=== PATIENT | male | born 1945 | race Caucasian/White ===

== ENCOUNTER 2017-09-11 08:38 | Day surgery (SDC) | payer MEDICARE, BC ==
[~2017-09-11 08:38] MED LIST: Metoclopramide 10 MG/2 ML SDV IV PRN; Sodium Chloride 0.9% 1,000 ML IV SCH; Sodium Chloride 0.9% 10 ML Syringe FLUSH PRN
--- NOTE | 2017-09-11 17:59 | OR ---
DATE OF OPERATION: 09/11/2017 PREOPERATIVE DIAGNOSIS: Surveillance colonoscopy. POSTOPERATIVE DIAGNOSIS: Normal colonoscopy. OPERATION: Surveillance colonoscopy. COMPLICATIONS: None. DRAINS: None. SPECIMENS: None. ESTIMATED BLOOD LOSS: Zero. ANESTHESIA: General propofol anesthesia. INDICATION: Mr. Hdz is a 71-year-old gentleman here for a surveillance colonoscopy. He does have a history of polypectomy in the past and is considered high risk for colonic polyps. He is otherwise asymptomatic. The above-mentioned procedure was explained. The risks, benefits, and complications were explained. The patient understood and agreed and was brought to the operating room. DESCRIPTION OF PROCEDURE: The patient was brought to the operating room, placed in the left lateral decubitus position on the operating room table. Satisfactory general propofol anesthesia was administered. We began by performing a rectal examination which was within normal limits. I then placed the endoscope by finger introduction into the rectum and subsequently advanced this to the level of the cecum. This was easily accomplished. The cecum was identified with the appendiceal orifice and the cecal strap and the ileocecal valve. Careful evaluation of the abdomen was then carried out. Careful evaluation of the colon was then carried out on withdrawal. There were no telangiectasias, polyps, neoplastic growths, or diverticula. Next, I performed a retroflexion maneuver in the rectum and this was within normal limits as well. The colon was decompressed and the endoscope was withdrawn. The patient tolerated the procedure well. There were no complications. Instrument count was correct. The patient was awoken in the OR and taken to PACU for recovery. Recommend followup colonoscopy in 5 years. MEHDI /[id number]
== END 2017-09-11 11:50 | disposition home or self-care (01) ==
LOC: LB.SDS 08:38
PROVIDERS: ATTEND Surgery
DX: Z12.11 Encounter for screening for malignant neoplasm of colon (principal); K21.9 Gastro-esophageal reflux disease without esophagitis; Z98.890 Other specified postprocedural states; Z87.19 Personal history of other diseases of the digestive system
CPT/HCPCS: G0121; J7040; J7030

== ENCOUNTER 2023-05-28 05:30 | Inpatient (IN) | payer OTHER, MEDICARE ==
[2023-05-28] MEDS ORDERED: Sodium Chloride 0.9% 10 ML Syringe FLUSH PRN (05:51)
[2023-05-28] MEDS ORDERED: Albuterol/Ipratropium 3.0-0.5 MG/3 ML Neb Soln NEB ONE (06:02)
[2023-05-28] MEDS: Albuterol/Ipratropium 3.0-0.5 MG/3 ML Neb Soln NEB SCH ×6 (06:02→23:30)
[2023-05-28 06:03] LABS: HEMATOCRIT 46.8 % (40.0-54.0); HEMOGLOBIN 15.8 g/dL (13.0-18.0); MEAN CORPUSCULAR HGB CONC 33.8 g/dL (31.0-35.0); MEAN PLATELET VOLUME 10.2 fL (6.0-10.0); RED BLOOD CELL COUNT 5.26 M/uL (4.50-6.50); RED CELL DISTRIBUTION WIDTH 14.9 % (11.0-16.0); WHITE BLOOD CELL COUNT,WBC 7.6 K/uL (4.0-11.0)
[2023-05-28 06:17] LABS: MAGNESIUM 1.9 mg/dL (1.8-2.4); PHOSPHORUS 4.7 mg/dL (2.5-4.9); TROPONIN I HIGH SENSITIVITY 10.4 pg/ml (<=60.4)
[2023-05-28 06:19] LABS: A/G RATIO 0.8 (0.8-2.0); ALBUMIN 3.4 g/dL (3.4-5.0); ANION GAP 16.4 mmol/L (5.0-15.0); BILIRUBIN TOTAL 0.5 mg/dL (0.0-1.0); BUN/CREATININE RATIO 18.6 (6-25); CALCIUM 10.1 mg/dL (8.5-10.1); CARBON DIOXIDE,CO2 25.7 mmol/L (21.0-32.0); CREATININE 1.13 mg/dL (0.70-1.30); EST CRCL DRUG DOSING (CG) 59.23 mL/min; POTASSIUM,K 4.1 mmol/L (3.5-5.1); PROTEIN TOTAL,TP 7.6 g/dL (6.4-8.2)
[2023-05-28] MEDS ORDERED: methylPREDNISolone Sodium Succinate 40 MG/1 ML SDV IVPUSH ONE (06:25)
[2023-05-28] MEDS ORDERED: Albuterol 0.083% 2.5 MG/3 ML Neb Soln NEB ONE (06:26)
[2023-05-28] MEDS ORDERED: Albuterol 0.083% 2.5 MG/3 ML Neb Soln ONE (06:31)
[2023-05-28] MEDS ORDERED: methylPREDNISolone Sodium Succinate 40 MG/1 ML SDV ONE (06:31)
[2023-05-28] MEDS ORDERED: Sodium Chloride 0.9% 1,000 ML IV SCH (06:45)
[2023-05-28 06:59] LABS: INFLUENZA A NAA NEGATIVE (NEGATIVE); INFLUENZA B NAA NEGATIVE (NEGATIVE); RESPIRATORY SYNCYTIAL VIR NAA NEGATIVE (NEGATIVE)
[2023-05-28 07:00] LABS: CORONAVIRUS COVID-19 NAA NEGATIVE (NEGATIVE)
[2023-05-28] MEDS ORDERED: Iopamidol 755 Mg/ML 100 ML Bottle IV PRN (07:10)
[2023-05-28] MEDS ORDERED: Sodium Chloride 0.9% 50 ML SDV FLUSH SCH (07:15)
[2023-05-28] MEDS ORDERED: Formoterol/Mometasone 200-5 MCG 8.8 GM Inhaler IH SCH (08:00)
[2023-05-28] MEDS: Budesonide 0.5 MG/2 ML Neb Susp NEB SCH ×2 (08:06→19:43)
[2023-05-28] MEDS: Nicotine 14 MG/24 Hr Patch TRDERM SCH (08:06)
[2023-05-28] MEDS ORDERED: Albuterol 90 MCG/6.7 GM Inhaler INH PRN (11:23)
[2023-05-28] MEDS: Tiotropium Bromide 4 GM Inhalation Spray (2.5mcg/1 dose; 10 doses) INH SCH ×2 (11:48→12:54)
[2023-05-28] MEDS: WIXELA INH SCH ×2 (11:48→19:43)
[2023-05-28] MEDS: Omeprazole 20 MG Cap.CR PO SCH (11:49)
[2023-05-28] MEDS: Pantoprazole 40 MG Tab.CR PO SCH (11:49)
[2023-05-28] MEDS ORDERED: Simvastatin 20 MG Tab PO SCH (20:00)
[2023-05-28] MEDS ORDERED: Non-Formulary Medication 1 Each (Simvastatin [Simvastatin] 40 MG Tablet) PO SCH (20:00)
[2023-05-29] MEDS: Albuterol/Ipratropium 3.0-0.5 MG/3 ML Neb Soln NEB SCH ×7 (02:40→22:37)
[2023-05-29] MEDS: Pantoprazole 40 MG Tab.CR PO SCH (07:31)
[2023-05-29] MEDS: Omeprazole 20 MG Cap.CR PO SCH (07:31)
[2023-05-29] MEDS: Nicotine 14 MG/24 Hr Patch TRDERM SCH (07:32)
[2023-05-29] MEDS: WIXELA INH SCH ×2 (07:35→20:23)
[2023-05-29] MEDS: Budesonide 0.5 MG/2 ML Neb Susp NEB SCH ×3 (08:00→22:56)
[2023-05-29] MEDS: Tiotropium Bromide 4 GM Inhalation Spray (2.5mcg/1 dose; 10 doses) INH SCH (09:14)
[2023-05-29] MEDS: methylPREDNISolone Sodium Succinate 40 MG/1 ML SDV IVPUSH SCH ×2 (10:06→22:35)
[2023-05-30] MEDS: Albuterol/Ipratropium 3.0-0.5 MG/3 ML Neb Soln NEB SCH ×8 (02:50→23:00)
[2023-05-30] MEDS: Nicotine 14 MG/24 Hr Patch TRDERM SCH (07:57)
[2023-05-30] MEDS: Omeprazole 20 MG Cap.CR PO SCH (07:57)
[2023-05-30] MEDS: WIXELA INH SCH ×2 (07:58→20:51)
[2023-05-30] MEDS: Tiotropium Bromide 4 GM Inhalation Spray (2.5mcg/1 dose; 10 doses) INH SCH (09:26)
[2023-05-30] MEDS: methylPREDNISolone Sodium Succinate 40 MG/1 ML SDV IVPUSH SCH ×2 (09:27→20:42)
[2023-05-30] MEDS: Budesonide 0.5 MG/2 ML Neb Susp NEB SCH ×2 (11:27→23:19)
[2023-05-30] MEDS: Calcium Carbonate 500 MG Tab.Chew PO PRN (21:40)
[2023-05-31] MEDS: Calcium Carbonate 500 MG Tab.Chew PO PRN ×3 (01:09→21:50)
[2023-05-31] MEDS: Albuterol/Ipratropium 3.0-0.5 MG/3 ML Neb Soln NEB SCH ×6 (02:41→22:17)
[2023-05-31] MEDS: Omeprazole 20 MG Cap.CR PO SCH (07:26)
[2023-05-31] MEDS: Nicotine 21 MG/24 Hr Patch TRDERM SCH (07:27)
[2023-05-31] MEDS: WIXELA INH SCH ×2 (07:27→19:46)
[2023-05-31] MEDS: Tiotropium Bromide 4 GM Inhalation Spray (2.5mcg/1 dose; 10 doses) INH SCH (09:15)
[2023-05-31] MEDS: methylPREDNISolone Sodium Succinate 40 MG/1 ML SDV IVPUSH SCH ×2 (09:15→21:26)
[2023-05-31] MEDS: Budesonide 0.5 MG/2 ML Neb Susp NEB SCH ×2 (11:03→22:54)
[2023-06-01] MEDS: Albuterol/Ipratropium 3.0-0.5 MG/3 ML Neb Soln NEB SCH ×7 (02:35→22:02)
[2023-06-01] MEDS: WIXELA INH SCH ×2 (07:44→19:56)
[2023-06-01] MEDS: Nicotine 21 MG/24 Hr Patch TRDERM SCH (07:44)
[2023-06-01] MEDS: Omeprazole 20 MG Cap.CR PO SCH (07:46)
[2023-06-01] MEDS: Tiotropium Bromide 4 GM Inhalation Spray (2.5mcg/1 dose; 10 doses) INH SCH (09:38)
[2023-06-01] MEDS: methylPREDNISolone Sodium Succinate 40 MG/1 ML SDV IVPUSH SCH ×2 (09:39→21:55)
[2023-06-01] MEDS: Budesonide 0.5 MG/2 ML Neb Susp NEB SCH ×2 (12:40→22:28)
[2023-06-01] MEDS: Calcium Carbonate 500 MG Tab.Chew PO PRN (15:36)
[2023-06-02] MEDS: Albuterol/Ipratropium 3.0-0.5 MG/3 ML Neb Soln NEB SCH ×2 (02:45→06:00)
[2023-06-02] MEDS: Nicotine 21 MG/24 Hr Patch TRDERM SCH (07:20)
[2023-06-02] MEDS: Omeprazole 20 MG Cap.CR PO SCH (07:20)
[2023-06-02] MEDS: WIXELA INH SCH (07:20)
[2023-06-02] MEDS ORDERED: methylPREDNISolone Sodium Succinate 40 MG/1 ML SDV ONE (10:13)
[2023-06-02] MEDS: methylPREDNISolone Sodium Succinate 40 MG/1 ML SDV IVPUSH SCH (10:18)
[2023-06-02] MEDS: Tiotropium Bromide 4 GM Inhalation Spray (2.5mcg/1 dose; 10 doses) INH SCH (10:18)
== END 2023-06-02 10:54 | disposition home or self-care (01) | DRG 191 ==
LOC: LB.ED 05:30 → LB.MS 06:34 → UNDOADMOB 06:34 → LB.MS 09:04 → OBSVTOIN 09:57 → INTOOBSV 09:57 → OBSVTOIN 05-31 09:57 → UNDODISIN 06-02 10:54
PROVIDERS: ADMIT Surgery; ATTEND Surgery
DX: J44.1 Chronic obstructive pulmonary disease with (acute) exacerbation (principal); C34.90 Malignant neoplasm of unspecified part of unspecified bronchus or lung; Z79.899 Other long term (current) drug therapy; Z20.822 Contact with and (suspected) exposure to COVID-19; Z91.030 Bee allergy status; C78.7 Secondary malignant neoplasm of liver and intrahepatic bile duct; K21.9 Gastro-esophageal reflux disease without esophagitis; D64.9 Anemia, unspecified; F17.210 Nicotine dependence, cigarettes, uncomplicated; R09.02 Hypoxemia; Z99.81 Dependence on supplemental oxygen; Z79.51 Long term (current) use of inhaled steroids; Z86.010 Personal history of colon polyps; Z98.890 Other specified postprocedural states
CPT/HCPCS: 0241U; 36415; 71045; 71275; 80053; 83735; 83880; 84100; 84484; 85027; 85379; 93005; 93010; 94640; A9270-GY; J2920; J3475; J3490; J7030; J7620; Q9967

== ENCOUNTER 2023-06-09 15:54 | Emergency (ER) | payer OTHER, MEDICARE ==
[2023-06-09] MEDS ORDERED: Aspirin 81 MG Tab.Chew PO ONE (16:33)
[2023-06-09] MEDS: Sodium Chloride 0.9% 1,000 ML IV ONE ×2 (16:39→17:08)
[2023-06-09 16:47] LABS: HEMATOCRIT 31.1 % (40.0-54.0); HEMOGLOBIN 11.5 g/dL (13.0-18.0); MEAN CORPUSCULAR VOLUME 81 fL (76-96); MEAN PLATELET VOLUME 10.9 fL (6.0-10.0); RED BLOOD CELL COUNT 3.83 M/uL (4.50-6.50); RED CELL DISTRIBUTION WIDTH 14.2 % (11.0-16.0)
[2023-06-09 17:02] LABS: PLATELET COUNT,PLT 17 K/uL (150-400); WHITE BLOOD CELL COUNT,WBC 21.2 K/uL (4.0-11.0)
[2023-06-09 17:05] LABS: ALBUMIN 2.9 g/dL (3.4-5.0); ANION GAP 22.1 mmol/L (5.0-15.0); BILIRUBIN TOTAL 0.9 mg/dL (0.0-1.0); BUN/CREATININE RATIO 39.9 (6-25); CALCIUM 9.5 mg/dL (8.5-10.1); CARBON DIOXIDE,CO2 20.8 mmol/L (21.0-32.0); CREATININE 1.48 mg/dL (0.70-1.30); EST CRCL DRUG DOSING (CG) 45.23 mL/min; POTASSIUM,K 4.9 mmol/L (3.5-5.1); PROTEIN TOTAL,TP 5.9 g/dL (6.4-8.2)
[2023-06-09 17:10] LABS: TROPONIN I HIGH SENSITIVITY 26.1 pg/ml (<=60.4)
[2023-06-09 17:22] LABS: INR 1.1 (1.0-3.5)
[2023-06-09 17:47] LABS: PROTHROMBIN TIME 11.6 sec (9.0-11.5)
[2023-06-09] MEDS ORDERED: Sodium Chloride 0.9% 1,000 ML IV ONE (17:49)
[2023-06-09 17:59] LABS: HELMET CELLS RARE; POIKILOCYTOSIS OCCASIONAL; STOMATOCYTES RARE
[2023-06-09 18:00] LABS: PLATELET COUNT ESTIMATE MARKED DEC
[2023-06-09] MEDS ORDERED: Piperacillin/Tazobactam 3.375 GM in Sodium Chloride 0.9% 100 ML IV SCH (18:00)
[2023-06-09 18:06] LABS: APPEARANCE,URINE CLOUDY (CLEAR); BILIRUBIN,URINE SMALL (NEGATIVE); COLOR,URINE YELLOW; GLUCOSE,URINE NEGATIVE (NEGATIVE); KETONES,URINE TRACE mg/dL (NEGATIVE); LEUKOCYTE ESTERASE,URINE NEGATIVE (NEGATIVE); NITRITE,URINE NEGATIVE (NEGATIVE); OCCULT BLOOD,URINE TRACE-INTACT (NEGATIVE); PH,URINE 5.5 (5.0-8.0); PROTEIN,URINE 30 mg/dL (NEGATIVE)
[2023-06-09 18:11] LABS: AMORPHOUS SEDIMENT,URINE FEW /HPF; EPITHELIAL CELLS,URINE FEW /HPF; FINE GRANULAR CASTS,URINE FEW /HPF; HYALINE CASTS,URINE MODERATE /HPF; RBC,URINE 0-5 /HPF; WBC,URINE 0-5 /HPF
[2023-06-09] MEDS ORDERED: Pantoprazole 40 MG Vial IVPUSH ONE (19:35)
[2023-06-09] MEDS ORDERED: Pantoprazole 40 MG Vial ONE (19:47)
[2023-06-09] MEDS ORDERED: Tranexamic Acid 1,000 MG in Sodium Chloride 0.9% 100 ML IV ONE (20:36)
[2023-06-09] MEDS ORDERED: Tranexamic Acid 2,000 MG in Sodium Chloride 0.9% 100 ML IV ONE (20:50)
== END 2023-06-09 21:13 ==
LOC: LB.ED 15:54
DX: A41.9 Sepsis, unspecified organism (principal); I95.9 Hypotension, unspecified; N17.9 Acute kidney failure, unspecified; R79.89 Other specified abnormal findings of blood chemistry; D69.6 Thrombocytopenia, unspecified; Z91.030 Bee allergy status; J44.9 Chronic obstructive pulmonary disease, unspecified; Z79.899 Other long term (current) drug therapy
CPT/HCPCS: 36415; 51702; 71045; 80053; 81001; 83605; 83880; 84484; 85025; 85379; 85610; 85730; 87040; 93005; 96361; 96365; 96367; 96368; 96375; 99285-25; A0425; A0429; A9270-GY; C9113; J2543; J3370; J3490; J7030